=== PATIENT | female | born 1995 | race Caucasian/White ===

== ENCOUNTER 2019-02-19 16:53 | Emergency (ER) | payer MEDICAID ==
[~2019-02-19] VITALS: Ht 160 cm; Wt 53.6 kg
[2019-02-19 17:03] VITALS: Ht 160 cm; Wt 53.6 kg
[2019-02-19] MEDS ORDERED: PRENAVITE1 TAB PO (17:06)
[2019-02-19] MEDS ORDERED: MACROBID100 MG PO (17:06)
[2019-02-19 17:34] LABS: APPEARANCE SL CLDY (CLEAR); BACTERIA MODERATE /hpf (NEGATIVE); BILIRUBIN NEGATIVE (NEGATIVE); COLOR YELLOW (YELLOW); EPITHELIAL CELLS 0-5 /hpf (0-5); GLUCOSE NEGATIVE (NEGATIVE); GRANULAR CAST RARE /lpf (NONE SEEN); KETONE SMALL mg/dL (NEGATIVE); MUCUS <1+ /lpf (NONE SEEN); NITRITE NEGATIVE (NEGATIVE); PROTEIN NEGATIVE (NEGATIVE); RED CELLS - URINE 0-5 /hpf (0-5); SPECIFIC GRAVITY 1.015 (1.005-1.020); UROBILINOGEN NORMAL (NORMAL); WHITE CELLS - URINE 0-5 /hpf (NEGATIVE)
[2019-02-19 17:50] LABS: BASOPHILS 0.1 % (0-2); EOSINOPHILS 0.1 % (0-7); HEMATOCRIT 35.4 % (36.0-48.0); HEMOGLOBIN 11.7 g/dL (12-16); IMMATURE GRANULOCYTES 0.2 % (0-5); LYMPHOCYTES 23.4 % (15-50); MCH 30.4 pg (26.0-34.0); MCHC 33.1 g/dL (31.0-37.0); MCV 91.9 fL (80.0-100.0); MEAN PLATELET VOLUME 10.2 fL (7.4-10.4); MONOCYTES 5.5 % (2-11); NEUTROPHILS 70.7 % (40-80); PLATELET COUNT 255 10x3/uL (130-400); RBC 3.85 10x6/uL (4.00-5.40); RDW 13.4 % (11.5-14.5); WBC 8.7 10x3/uL (4.8-10.8)
[2019-02-19 18:06] LABS: CALC OSMOLALITY 273 mosm/kg (275-300); CALCIUM 9.4 mg/dL (8.5-10.1); CARBON DIOXIDE 26.3 mmol/L (21.0-32.0); CHLORIDE - SERUM 104 mmol/L (98-107); CREATININE - SERUM 0.5 mg/dL (0.6-1.3); GLUCOSE 92 mg/dL (74-106); POTASSIUM - SERUM 3.7 mmol/L (3.5-5.1); SODIUM 138 mmol/L (136-145); UREA NITROGEN 6 mg/dL (7-18); eGFR NON AFRICAN AMERICAN > 90 mL/min (90-120)
[2019-02-19 18:12] LABS: ALBUMIN 3.8 g/dL (3.4-5.0); ALKALINE PHOSPHATASE 57 U/L (46-116); ALT (SGPT) 22 U/L (10-68); BILIRUBIN - TOTAL 0.27 mg/dL (0.2-1.3); LIPASE 141 U/L (73-393); PROTEIN - SERUM 8.1 g/dL (6.4-8.2)
[2019-02-19] MEDS ORDERED: METRONIDAZOLE70 GM VG (18:58)
[2019-02-19 20:31] VITALS: BP 132/71
== END 2019-02-19 20:31 | disposition home or self-care (01) ==
LOC: D.ER 16:53
PROVIDERS: Emergency Medicine
DX: O21.9 Vomiting of pregnancy, unspecified (principal); O23.41 Unspecified infection of urinary tract in pregnancy, first trimester; Z3A.12 12 weeks gestation of pregnancy; R42 Dizziness and giddiness

== ENCOUNTER → 2019-02-21 20:51 | Outpatient (CLI) | payer MEDICAID ==
[2019-02-19 17:03] VITALS: BMI 20.9
[~2019-02-21 20:51] MED LIST: MACROBID100 MG PO; METRONIDAZOLE70 GM VG; PRENAVITE1 TAB PO
== END | disposition home or self-care (01) ==
LOC: D.LDO 20:51
PROVIDERS: ATTEND Obstetrics & Gynecology
DX: O26.899 Other specified pregnancy related conditions, unspecified trimester (principal); Z3A.00 Weeks of gestation of pregnancy not specified; M54.9 Dorsalgia, unspecified

== ENCOUNTER → 2019-02-25 16:07 | Outpatient (CLI) | payer MEDICAID ==
[2019-02-19 17:03] VITALS: BMI 20.9
[2019-02-25 16:57] LABS: APPEARANCE HAZY (CLEAR); BILIRUBIN NEGATIVE (NEGATIVE); COLOR YELLOW (YELLOW); GLUCOSE NEGATIVE (NEGATIVE); KETONE NEGATIVE (NEGATIVE); NITRITE NEGATIVE (NEGATIVE); PROTEIN NEGATIVE (NEGATIVE); UROBILINOGEN NORMAL (NORMAL)
[2019-02-25 17:00] LABS: AMORPHOUS SEDIMENT >1+ /lpf (NONE SEEN); BACTERIA MODERATE /hpf (NEGATIVE); RED CELLS - URINE 0-5 /hpf (0-5); WHITE CELLS - URINE 0-5 /hpf (NEGATIVE)
== END | disposition home or self-care (01) ==
LOC: D.LDO 16:07
PROVIDERS: ATTEND Obstetrics & Gynecology
DX: O26.891 Other specified pregnancy related conditions, first trimester (principal); Z3A.12 12 weeks gestation of pregnancy; M54.9 Dorsalgia, unspecified; R10.9 Unspecified abdominal pain; N39.0 Urinary tract infection, site not specified

== ENCOUNTER → 2019-04-04 19:04 | Outpatient (CLI) | payer MEDICAID ==
[2019-02-19 17:03] VITALS: BMI 20.9
== END | disposition home or self-care (01) ==
LOC: D.LDO 19:04
PROVIDERS: ATTEND Obstetrics & Gynecology
DX: O26.892 Other specified pregnancy related conditions, second trimester (principal); Z3A.18 18 weeks gestation of pregnancy; R10.9 Unspecified abdominal pain; N89.8 Other specified noninflammatory disorders of vagina

== ENCOUNTER → 2019-06-11 19:49 | Outpatient (CLI) | payer MEDICAID ==
[2019-02-19 17:03] VITALS: BMI 20.9
[2019-06-11 21:09] LABS: BILIRUBIN NEGATIVE (NEGATIVE); GLUCOSE NEGATIVE (NEGATIVE); KETONE NEGATIVE (NEGATIVE); NITRITE NEGATIVE (NEGATIVE); SPECIFIC GRAVITY 1.015 (1.005-1.020); UROBILINOGEN NORMAL (NORMAL)
[2019-06-11 21:10] LABS: AMORPHOUS SEDIMENT >1+ /lpf (NONE SEEN); BACTERIA MANY /hpf (NEGATIVE); EPITHELIAL CELLS OCC /hpf (0-5)
== END | disposition home or self-care (01) ==
LOC: D.LDO 19:49
PROVIDERS: ATTEND Student in an Organized Health Care Education/Training Program
DX: O26.899 Other specified pregnancy related conditions, unspecified trimester (principal); R10.30 Lower abdominal pain, unspecified; M54.5 Low back pain

== ENCOUNTER 2019-08-11 12:07 | Outpatient (CLI) | payer MEDICAID ==
[2019-02-19 17:03] VITALS: BMI 20.9
== END 2019-08-11 13:45 | disposition home or self-care (01) ==
LOC: D.LDO 12:07
PROVIDERS: ATTEND Obstetrics & Gynecology
DX: O36.8130 Decreased fetal movements, third trimester, not applicable or unspecified (principal); Z3A.36 36 weeks gestation of pregnancy

== ENCOUNTER 2019-08-22 13:39 | Outpatient (CLI) | payer MEDICAID ==
[2019-02-19 17:03] VITALS: BMI 20.9
[2019-08-22 16:04] LABS: BILIRUBIN NEGATIVE (NEGATIVE); GLUCOSE NEGATIVE (NEGATIVE); KETONE NEGATIVE (NEGATIVE); NITRITE NEGATIVE (NEGATIVE); UROBILINOGEN NORMAL (NORMAL)
== END 2019-08-22 14:45 | disposition home or self-care (01) ==
LOC: D.LDO 13:39
PROVIDERS: ATTEND Obstetrics & Gynecology
DX: O36.8130 Decreased fetal movements, third trimester, not applicable or unspecified (principal); Z3A.38 38 weeks gestation of pregnancy

== ENCOUNTER 2019-08-25 13:40 | Outpatient (CLI) | payer MEDICAID ==
[2019-02-19 17:03] VITALS: BMI 20.9
[2019-08-25 15:14] LABS: UDS - AMPHET NEGATIVE QUAL (NEGATIVE); UDS - BARB NEGATIVE QUAL (NEGATIVE); UDS - BENZO NEGATIVE QUAL (NEGATIVE); UDS - COCAINE NEGATIVE QUAL (NEGATIVE); UDS - OPIATE NEGATIVE QUAL (NEGATIVE); UDS - PCP NEGATIVE QUAL (NEGATIVE); UDS - THC NEGATIVE QUAL (NEGATIVE)
[2019-08-25 15:21] LABS: BILIRUBIN NEGATIVE (NEGATIVE); GLUCOSE NEGATIVE (NEGATIVE); KETONE NEGATIVE (NEGATIVE); NITRITE NEGATIVE (NEGATIVE); UROBILINOGEN NORMAL (NORMAL)
[2019-08-25 15:25] LABS: BACTERIA FEW /hpf (NEGATIVE); RED CELLS - URINE OCC /hpf (0-5); WHITE CELLS - URINE 0-5 /hpf (NEGATIVE)
[2019-08-27 20:59] VITALS: BMI 24.3
== END 2019-08-25 16:28 | disposition home or self-care (01) ==
LOC: D.LDO 13:40
PROVIDERS: ATTEND Student in an Organized Health Care Education/Training Program
DX: O36.8130 Decreased fetal movements, third trimester, not applicable or unspecified (principal); Z3A.38 38 weeks gestation of pregnancy

== ENCOUNTER 2019-08-27 20:35 | Inpatient (IN) | payer MEDICAID ==
[~2019-08-27] VITALS: Ht 160 cm; Wt 62.1 kg
[2019-08-27 20:59] VITALS: BP 114/79; Ht 160 cm; Wt 62.1 kg
[2019-08-27 21:58] LABS: HEMATOCRIT 30.9 % (36.0-48.0); HEMOGLOBIN 9.5 g/dL (12-16); MCH 27.1 pg (26.0-34.0); MCHC 30.7 g/dL (31.0-37.0); MEAN PLATELET VOLUME 10.6 fL (7.4-10.4); RBC 3.51 10x6/uL (4.00-5.40); RDW 13.3 % (11.5-14.5); WBC 10.8 10x3/uL (4.8-10.8)
[2019-08-27 22:07] LABS: BACTERIA FEW /hpf (NEGATIVE); BILIRUBIN NEGATIVE (NEGATIVE); GLUCOSE NEGATIVE (NEGATIVE); KETONE NEGATIVE (NEGATIVE); NITRITE NEGATIVE (NEGATIVE); RED CELLS - URINE RARE /hpf (0-5); UROBILINOGEN NORMAL (NORMAL)
--- NOTE | 2019-08-28 08:15 | NUR ---
ambulatory to bathroom. voided 300cc. pericare done using betadine and warm water. tucks and dermaplast. pt instructed on use. ambulatory to room 1273- tolerated well
--- NOTE | 2019-08-28 08:56 | MORECARE ---
CASE MANAGEMENT DISCHARGE SUMMARY PATIENT: GABRIELLA SALES UNIT: [id number] ADM DATE: 08/27/19 AGE: 24 : [birth year] SEX: F ROOM/BED: D.[facility] AUTHOR: CHELSEA GARNETT PHYSICIAN: REFERRING PHYSICIAN: PENNY ROBERSON MD DATE OF SERVICE: 08/28/19 Discharge Plan Patient Name: GABRIELLA SALES Facility: [facility]:[place] : 1995 Planned Disposition: Home Anticipated Discharge Date: 08/29/19 Discharge Date: Expected LOS: 2 Initial Reviewer: [email or web address] Initial Review Date: 08/27/2019 Generated: 08/28/19 9:55 am Patient Name: GABRIELLA SALES Page [id number] at 0856 All edits/amendments must be made on the electronic document DICTATION DATE: 08/28/1956 BRONZE PLATER: NORM 08/28/19 0855 RPT#: [id number] DC DATE: STATUS: ADM IN [facility] [address] [place] [address] END OF REPORT
--- NOTE | 2019-08-28 09:30 | NUR ---
ASLEEP- RESP REG AND EVEN.
--- NOTE | 2019-08-28 11:00 | NUR ---
AWAKE- RESTING IN BED- DENIES NEEDS.
[2019-08-28 11:17] VITALS: BP 123/75
[2019-08-28 11:32] VITALS: BP 133/70
[2019-08-28 12:48] VITALS: BP 102/57
--- NOTE | 2019-08-28 12:50 | NUR ---
REG DIET SERVED. SITTING UP IN BED. FUNDUS CHECKED- U1/FIRM/SMALL LOCHIA NOTED ON PAD. DENIES NEEDS.
--- NOTE | 2019-08-28 14:15 | NUR ---
no changes in status- denies needs.
--- NOTE | 2019-08-28 16:00 | NUR ---
up and about in room at will. states that voiding without problems. denies needs.
[2019-08-28 16:45] VITALS: BP 105/60
--- NOTE | 2019-08-28 16:50 | NUR ---
resting in bed. baby in arms. fundus u2/firm. scant lochia noted on pad. denies needs.
[2019-08-28 22:14] VITALS: BP 109/68
--- NOTE | 2019-08-28 22:14 | NUR ---
PT REC'D IN BED AT THIS TIME. NO DISTRESS NOTED AT THIS TIME. FUNDUS FIRM WITH SMALL LOCHIA NOTED. COMPLETED ASSESSEMNT PER FLOWSHEET. Jabier RAMIREZ RN
--- NOTE | 2019-08-29 00:10 | NUR ---
PT REC'D WALKING IN [place] COMING FROM [facility]. NO DISTRESS NOTED AT THIS TIME. Jabier RAMIREZ RN
--- NOTE | 2019-08-29 01:19 | NUR ---
pt medicated with motrin for abdominal cramping. will continue to monitor. rody badillo rn
--- NOTE | 2019-08-29 02:09 | NUR ---
PT UP IN ROOM AT THIS TIME. STATES THAT PAIN IS A 4/10 NOW. WILL MONITOR. Jabier RAMIREZ RN
[2019-08-29 04:59] VITALS: BP 121/86
--- NOTE | 2019-08-29 04:59 | NUR ---
RN TO PT BEDSIDE AT THIS TIME, PT STATES PAIN IS 5/10 TO LOWER ABDOMEN. FUNDUS IS FIRM, MIDLINE, 1 BELOW, SCANT RUBRA LOCHIA, NO CLOTS SEEN. BED IN LOWEST POSITION, CALL LIGHT IN REACH, SIDE RAILS UP X2, SIGNIFICANT OTHER AT BEDSIDE.
[2019-08-29 07:13] LABS: RAPID PLASMA REAGIN Non Reactive (Non Reactive)
--- NOTE | 2019-08-29 07:30 | NUR ---
AM ASSESSMENT COMPLETED CHARTED ON FLOWSHEET. PT DENIES PAIN OR DISCOMFORT AT THIS TIME, FUNDUS FIRM AT U/1 WITH SCANT BLEEDING TO VENANCIO PAD AND SHE DENIES CLOTS WITH VOIDS. IV TO RIGHT FOREARM PATENT AND FLUSHED EASILY WITH 5ML OF NS. IN CRIB AT BEDSIDE, FOB IS ALSO PRESENT. PT UP AND AMB ABOUT ROOM WITH NO NEEDS VOICED.
[2019-08-29 08:08] LABS: BASOPHILS 0.2 % (0-2); EOSINOPHILS 0.3 % (0-7); HEMATOCRIT 30.2 % (36.0-48.0); HEMOGLOBIN 9.2 g/dL (12-16); IMMATURE GRANULOCYTES 0.3 % (0-5); LYMPHOCYTES 23.3 % (15-50); MCH 27.4 pg (26.0-34.0); MCHC 30.5 g/dL (31.0-37.0); MCV 89.9 fL (80.0-100.0); MONOCYTES 6.4 % (2-11); NEUTROPHILS 69.5 % (40-80); PLATELET COUNT 264 10x3/uL (130-400); RBC 3.36 10x6/uL (4.00-5.40); RDW 13.6 % (11.5-14.5); WBC 11.6 10x3/uL (4.8-10.8)
--- NOTE | 2019-08-29 09:45 | NUR ---
DR SHEIKH ON UNIT WITH ROUNDS MADE.
--- NOTE | 2019-08-29 10:15 | NUR ---
PER NURSERY NURSE HAS RECEIVED DISCHARGE ORDERS, DR SHEIKH NOTIFIED TO VERIFY THAT PT WAS TO BE DISCHARGED TODAY ALSO.
--- NOTE | 2019-08-29 12:00 | NUR ---
PT CALLS OUT TO ASK IF SHE CAN DRESS INFANT, PER NURSERY NURSE THAT WAS OK TO DO SO NOW.
--- NOTE | 2019-08-29 12:30 | NUR ---
MMR GIVEN TO LEFT ARM SCANNED TO EMAR. IBUPROFEN ALSO GIVEN AT THIS TIME FOR PAIN/CRAMPING THAT SHE RATES AT 3/10. SALINE LOCK REMOVED FROM RIGHT FOREARM, IV CATH NOTED TO BE INTACT.
--- NOTE | 2019-08-29 13:00 | NUR ---
VERBAL AND WRITTEN DISCHARGE INSTRUCTIONS GONE OVER WITH PT, SHE STATES HER UNDERSTANDING TO ALL INFO GIVEN INCLUDING PAIN CONTROL. IS SECURED INTO CARRIER AND VERIFIED. PT TAKEN OUT TO CAR BY WHEELCHAIR WITH INFANT. HOME BY PRIVATE CAR WITH FAMILY MEMBER AND INFANT. AT TIME OF DISCHARGE PT RATED HER PAIN AT 0/10 AND SHOWED NO SIGNS OF DISTRESS.
--- NOTE | 2019-08-29 14:37 | MORECARE ---
CASE MANAGEMENT DISCHARGE SUMMARY PATIENT: GABRIELLA SALES UNIT: [id number] ADM DATE: 08/27/19 AGE: 24 : [birth year] SEX: F ROOM/BED: D.[facility] AUTHOR: CHELSEA GARNETT PHYSICIAN: REFERRING PHYSICIAN: PENNY ROBERSON MD DATE OF SERVICE: 08/29/19 Discharge Plan Patient Name: GABRIELLA SALES Facility: [facility]:[place] : 1995 Planned Disposition: Home Anticipated Discharge Date: 08/29/19 Discharge Date: 08/29/2019 Expected LOS: 2 Initial Reviewer: [email or web address] Initial Review Date: 08/27/2019 Generated: 08/29/19 3:36 pm Last DP export: 08/28/19 7:56 am Patient Name: GABRIELLA SALES Page [id number] at 1437 All edits/amendments must be made on the electronic document DICTATION DATE: 08/29/19 1436 NETWORK PLANNER: NORM 08/29/19 1436 RPT#: [id number] DC DATE:08/29/19 STATUS: DIS IN [place] [id number] [place] [address] END OF REPORT
== END 2019-08-29 13:00 | disposition home or self-care (01) | DRG 807 ==
LOC: D.LD 20:35 → D.SDCHOLD 08-28 11:59 → D.LD 08-28 12:10
PROVIDERS: Student in an Organized Health Care Education/Training Program; ADMIT Obstetrics & Gynecology; ATTEND Obstetrics & Gynecology
PROC: 10E0XZZ Delivery of Products of Conception, External Approach (ICD-10-PCS; principal; 2019-08-28)
DX: O69.81X0 Labor and delivery complicated by cord around neck, without compression, not applicable or unspecified (principal); Z37.0 Single live birth; Z3A.39 39 weeks gestation of pregnancy; O71.89 Other specified obstetric trauma